=== PATIENT | female | born 1965 | race African-American/Black ===

== ENCOUNTER 2023-04-30 22:49 | Emergency (ER) | payer MEDICAID, OTHER ==
[~2023-04-30] VITALS: Ht 152.4 cm; Wt 45.0 kg
[~2023-04-30 22:49] MED LIST: BENZ0.5T3 PO; FURO40TA5 PO; HALO10TA13 PO; IBUP-2030 PO; SUCR1TAB PO
[2023-04-30 22:59] VITALS: O2SAT 98
[2023-04-30] MEDS ORDERED: ACETAMINOPHEN 325MG SUPP PR ONE (23:15)
[2023-04-30] MEDS ORDERED: SODIUM CHLORIDE 0.9% 1,000 ML IV ONE (23:15)
[2023-04-30] MEDS ORDERED: ACETAMINOPHEN 650MG SUPP PR NR (23:30)
[2023-04-30 23:31] LABS: HEMATOCRIT. 35.2 % (36.0-48.0); HEMOGLOBIN. 11.3 g/dL (12.0-16.0); MEAN CORPUSCULAR HEMOGLOBIN 29.4 pg (28.0-32.0); MEAN CORPUSCULAR VOLUME 91.9 fL (81.0-99.0); MEAN PLATELET VOLUME 5.9 fl (7.4-10.4); PLATELET 348 x1000/uL (130-400); RED BLOOD CELL COUNT 3.83 mill/uL (4.2-5.4); RED CELL DISTRIBUTION WIDTH 15.1 % (11.6-14.6); WHITE BLOOD COUNT 7.1 x1000/uL (4.5-11.0)
[2023-04-30 23:41] LABS: PROTHROMBIN TIME 10.9 sec (9.6-11.0)
[2023-04-30 23:45] LABS: CHLORIDE 104 mEq/L (98-107); DIFFERENTIAL COMMENT 1; INDEX HEMOLYSI 1 (1-3); INDEX ICTERIC 1 (1-4); INDEX LIPEMIC 1 (1-3); POTASSIUM 4.3 mEq/L (3.5-5.1); SODIUM 136 mEq/L (136-145)
[2023-04-30 23:50] LABS: AMMONIA 19 uMol/L (<32)
[2023-04-30 23:54] LABS: ACETAMINOPHEN <2 ug/mL ug/mL (10-30); ALANINE AMINOTRANSFERASE 13 IU/L (13-61); ASPARTATE AMINOTRANSFERASE 18 IU/L (15-37); BILIRUBIN TOTAL 0.2 mg/dL (0.1-1.0); CALCIUM 8.9 mg/dL (8.5-10.1); CARBON DIOXIDE 26 mEq/L (21-32); CREATININE 0.6 mg/dL (0.6-1.3); ETHANOL BLOOD < 10 mg/dL (<10); GLUCOSE 105 mg/dL (70-105); PROTEIN TOTAL 7.7 g/dL (6.0-8.3); UREA NITROGEN BLOOD 22 mg/dL (7-21)
[2023-05-01 00:18] LABS: TROPONIN I HIGH SENSITIVITY 8 ng/L (<54)
[2023-05-01 02:49] LABS: TROPONIN I HIGH SENSITIVITY 9 ng/L (<54)
[2023-05-01] MEDS ORDERED: CEFTRIAXONE 1GM PREMIX 50 ML IV ONE (04:30)
[2023-05-01 08:14] LABS: PLATELET ESTIMATE NORMAL
[2023-05-01 09:15] LABS: CLARITY URINE CLOUDY (CLEAR); COLOR URINE YELLOW (YELLOW); GLUCOSE URINE NEGATIVE (NEGATIVE); KETONES URINE NEGATIVE (NEGATIVE); LEUKOCYTE ESTERASE URINE 3+ (NEGATIVE); NITRITE URINE POSITIVE (NEGATIVE); OCCULT BLOOD URINE 1+ (NEGATIVE); PROTEIN URINE 2+ (NEGATIVE); SPECIFIC GRAVITY URINE 1.012 (1.005-1.030); UROBILINOGEN URINE 0.2 E.U./dL (0.2-1.0)
[2023-05-01 09:30] VITALS: BP 100/53; PULSE 81; RESP 16; TEMP 99.7
[2023-05-01 09:30] LABS: BACTERIA URINE 1+; SQUAMOUS EPITHELIAL CELL URINE NONE SEEN /lpf (RARE/1+); WBC URINE TNTC /hpf (0-2); YEAST URINE NONE SEEN
[2023-05-01 09:40] LABS: *AMPHETAMINES SCREEN URINE NEGATIVE (NEGATIVE); *BARBITURATES SCREEN URINE NEGATIVE (NEGATIVE); *BENZODIAZEPINES SCREEN URINE NEGATIVE (NEGATIVE); *COCAINE SCREEN URINE NEGATIVE (NEGATIVE); CANNABINOID URINE SCREEN NEGATIVE (NEGATIVE); ECSTASY MDMA SCREEN URINE NEGATIVE (NEGATIVE); METHADONE URINE SCREEN NEGATIVE (NEGATIVE); OPIATES URINE SCREEN NEGATIVE (NEGATIVE); PHENCYCLIDINE URINE SCREEN NEGATIVE (NEGATIVE)
== END 2023-05-01 12:50 | disposition left against medical advice (07) ==
LOC: ER 22:49 → CMPBEDREQ 05-01 21:52
DX: R41.82 Altered mental status, unspecified (principal); G93.40 Encephalopathy, unspecified; I10 Essential (primary) hypertension; F20.9 Schizophrenia, unspecified; Z79.899 Other long term (current) drug therapy; Z20.822 Contact with and (suspected) exposure to COVID-19
CPT/HCPCS: 80053; 80307; 80329; 80320; 82140; 83605; 85025; 85610; 86850; 86870; 86900; 86901; 87040; 84484 ×2; 36415 ×2; 71045; 93005; 99285; 80305; 81003; 87086; 70450; 96365; 87426; J7030; C9803; J0696; Z7610; G0480